=== PATIENT | female | born 1985 | race Caucasian/White ===

== ENCOUNTER → 2021-09-17 | Outpatient (CLI) | payer BC ==
[~2021-09-17] MED LIST: BUTALB-ACETAMI1 EAC1 PO; COLACE 100MG C100 MG PO; COLACE100 MG PO; IBU600 MG PO; IBUPROFEN600 MG PO; LABETALOL HCL200 MG PO; LORTAB 5-325 M1 EACH PO; METFORMIN HCL750 MG PO; NORCO 5-325 TA1 EACH PO; PRENATAL VITAM1 EAC8 PO; TIROSINT125 MCG PO; TIROSINT137 MCG PO; TRANDATE 100 M100 MG PO
== END ==
LOC: HEART 5 13:51
DX: R00.2 Palpitations (principal)

== ENCOUNTER 2021-11-27 05:33 | Inpatient (IN) | payer BC ==
[~2021-11-27] VITALS: Ht 170.2 cm; Wt 118.8 kg
[2021-11-27 06:03] LABS: HEMOGLOBIN 11.8 gm/dl (12.3-15.3); RED BLOOD COUNT 3.88 M/UL (4.00-5.10); WHITE BLOOD COUNT 8.5 K/UL (4.5-11.0)
[2021-11-27] MEDS ORDERED: TIROSINT125 MCG PO (06:33)
[2021-11-27] MEDS ORDERED: TRANDATE 200 M200 MG PO ×2 (06:37→06:38)
[2021-11-28 07:01] LABS: HEMOGLOBIN 10.3 gm/dl (12.3-15.3)
[2021-11-29] MEDS ORDERED: COLACE 100MG C100 MG PO (10:23)
[2021-11-29] MEDS ORDERED: PERCOCET 5-3251 EACH PO (10:23)
[2021-11-29] MEDS ORDERED: IBUPROFEN600 MG PO (10:23)
[2021-11-29] MEDS ORDERED: FERROUS SULFAT325 MG PO (10:23)
== END 2021-11-29 13:11 | disposition home or self-care (01) | DRG 787 ==
LOC: OB 05:33
PROVIDERS: ADMIT Obstetrics & Gynecology
PROC: 10D00Z1 Extraction of Products of Conception, Low, Open Approach (ICD-10-PCS; 2021-11-27)
PROC: 3E0234Z Introduction of Serum, Toxoid and Vaccine into Muscle, Percutaneous Approach (ICD-10-PCS; principal; 2021-11-27 07:30)
DX: O36.63X0 Maternal care for excessive fetal growth, third trimester, not applicable or unspecified (principal); O10.92 Unspecified pre-existing hypertension complicating childbirth; O34.211 Maternal care for low transverse scar from previous cesarean delivery; Z90.89 Acquired absence of other organs; O99.284 Endocrine, nutritional and metabolic diseases complicating childbirth; Z37.0 Single live birth; Z3A.37 37 weeks gestation of pregnancy; Z20.822 Contact with and (suspected) exposure to COVID-19; E06.3 Autoimmune thyroiditis; Z88.2 Allergy status to sulfonamides; Z88.8 Allergy status to other drugs, medicaments and biological substances; Z82.49 Family history of ischemic heart disease and other diseases of the circulatory system; Z83.3 Family history of diabetes mellitus; Z80.8 Family history of malignant neoplasm of other organs or systems; Z90.49 Acquired absence of other specified parts of digestive tract; Z23 Encounter for immunization
CPT/HCPCS: 36415; 81001; 82800; 82962; 85014; 85018; 85025; 90715; C9113; J1580; J2274; J2370; J2405; J2590; J3010; J7030; J7120